=== PATIENT | male | born 1970 | race Two or more races ===

== ENCOUNTER 2021-12-01 13:19 | Outpatient (CLI) | payer OTHER | END 2021-12-01 13:20 | disposition home or self-care (01) | LOC: LAB 13:19 | PROVIDERS: ATTEND Radiology Diagnostic Radiology | DX: N20.0 Calculus of kidney (principal) ==

== ENCOUNTER 2021-12-11 09:14 | Outpatient (CLI) | payer OTHER | END 2021-12-11 09:33 | disposition home or self-care (01) | LOC: TOM 09:14 | PROVIDERS: ATTEND Urology | DX: N20.0 Calculus of kidney (principal) ==